=== PATIENT | female | born 1990 | race Caucasian/White ===

== ENCOUNTER 2017-05-25 14:10 | Emergency (ER) | payer SELFPAY ==
[2017-05-25 14:16] VITALS: TEMP 98.6
--- NOTE | 2017-05-25 14:26 | CPEKG ---
Heart Rate: 105 RR Interval: 571 P-R Interval: 128 QRSD Interval: 78 QT Interval: 336 QTC Interval: 445 P [place]: 27 QRS [place]: 105 T Wave [place]: 18 EKG Severity - OTHERWISE NORMAL ECG - EKG Impression: SINUS TACHYCARDIA EKG Impression: BORDERLINE RIGHT AXIS DEVIATION Electronically Signed By: Marcela Aguero 25-May-2017 20:22:00
--- NOTE | 2017-05-25 14:27 | EDPHY ---
H & P Time Seen by Provider: 05/25/17 14:18 HPI/ROS: CHIEF COMPLAINT: Chest pain, shortness of breath HISTORY OF PRESENT ILLNESS: The patient is a healthy 26 y/o female complaining of chest pain and shortness of breath onset 1 hour ago. An hour ago she was sitting down when she began experiencing dizziness, followed by left upper chest pain. Her hands began sweating and she became pale and short of breath prompting her visit. She currently feels shaky with chest pain and shortness of breath. The chest pain is dull, constant, and extends into her back. No change with deep inspiration or exertion. She denies rapid heart rate or other associated symptoms. She denies recent illness, travel, pain, or swelling her legs. She denies drug or alcohol use. REVIEW OF SYSTEMS: Constitutional: No fever, no chills Eyes: No visual changes ENT: No sore throat Respiratory: Shortness of breath, no cough Gastrointestinal: No nausea, no vomiting, no abdominal pain Genitourinary: No hematuria, no dysuria Musculoskeletal: No leg pain or swelling Skin: No rash Neurological: No headache, no weakness Psychiatric: No depression Past Medical/Surgical History: Denies Social History: No alcohol or drug use, non-smoker Smoking Status: Never smoked Physical Exam: General Appearance: Alert, no distress Eyes: Pupils equal and round, no conjunctival pallor or injection ENT, Mouth: Mucous membranes moist Neck: Normal inspection Respiratory: Lungs are clear to auscultation Cardiovascular: Regular rate and rhythm Gastrointestinal: Abdomen is soft and non- tender Neurological: A&O, nonfocal, normal gait Skin: Warm and dry, no rash Extremities: Nontender, no pedal edema Psychiatric: Mood and affect normal Constitutional: Initial Vital Signs Temperature (C) 37 C 05/25/17 14:13 Heart Rate 100 05/25/17 14:13 Respiratory Rate 16 05/25/17 14:13 Blood Pressure 146/99 H 05/25/17 14:13 O2 Sat (%) 96 05/25/17 14:13 O2 Delivery Mode Room Air Allergies/Adverse Reactions: No Known Allergies Allergy (Unverified 05/25/17 14:13) Home Medications: Medication Instructions Recorded NK [No Known Home Meds] 05/25/17 Medical Decision Making - Diagnostics EKG Interpretation: EKG interpreted by me reveals sinus tachycardia, rate 105, no ST or T segment changes. Imaging Results: Imaging Impressions Chest X-Ray 05/25/17 14:26 Impression: Normal. ED Course/Re-evaluation: The patient presents with upper left sided chest pain and shortness of breath sudden onset 1 hour ago. Stat EKG reveals no evidence of ischemia or dysrhythmia. She does have mild sinus tachycardia. Chest X-ray and labs to investigate cardiac or pulmonary causes. Toradol 15 mg IV given for pain. She has no risk factors for pulmonary embolism and is low risk per Wells criteria. A D-dimer was ordered; at this test is negative, I feel that I can safely exclude acute pulmonary embolism as etiology for symptoms. Laboratory analysis reveals hyperkalemia, with potassium was 6.0. She has no underlying renal insufficiency and no history of dehydration. I will repeat a Chem 7, as this may be a lab error secondary to hemolysis. Repeat potassium is normal, consistent with hemolysis. Otherwise, laboratory testing, EKG and chest x-ray were unremarkable. She feels better after IV fluids. She feels that she may have been dehydrated, which may have precipitated this episode. The etiology of this chest pain is likely chest wall pain. There is no evidence of serious cardiopulmonary etiology of pain. She is no longer dizzy after IV fluids and is able to walk with a steady gait. Differential Diagnosis: Differential diagnosis includes though it is not limited to pneumonia, pneumothorax, pulmonary embolism, aortic dissection, pericarditis, acute coronary syndrome. - Data Points Laboratory Results: Laboratory Results 05/25/17 14:57 05/25/17 16:30 05/25/17 05/25/17 05/25/17 16:30 14:57 14:57 WBC RBC Hgb Hct MCV MCH MCHC RDW Plt Count MPV Neut % (Auto) Lymph % (Auto) [place] % (Auto) Eos % (Auto) Baso % (Auto) Nucleat RBC Rel Count Absolute Neuts (auto) Absolute Lymphs (auto) Absolute Monos (auto) Absolute Eos (auto) Absolute Basos (auto) Absolute Nucleated RBC Immature Gran % Immature Gran # D-Dimer < 0.27 ug/mLFEU ug/mLFEU (0.00-0.50) Sodium 143 mEq/L mEq/L 142 mEq/L mEq/L (134-144) (134-144) Potassium 3.9 mEq/L mEq/L 6.0 mEq/L H mEq/L (3.5-5.2) (3.5-5.2) Chloride 109 mEq/L mEq/L 105 mEq/L mEq/L (97-110) (97-110) Carbon Dioxide 22 mEq/l mEq/l 24 mEq/l mEq/l (22-31) (22-31) Anion Gap 12 mEq/L mEq/L 13 mEq/L mEq/L (8-16) (8-16) BUN 11 mg/dL mg/dL 13 mg/dL mg/dL (7-23) (7-23) Creatinine 0.6 mg/dL mg/dL 0.6 mg/dL mg/dL (0.6-1.0) (0.6-1.0) Estimated GFR > 60 > 60 Glucose 90 mg/dL mg/dL 121 mg/dL H mg/dL (70-100) (70-100) Calcium 8.8 mg/dL mg/dL 9.2 mg/dL mg/dL (8.5-10.4) (8.5-10.4) Specimen Hemolysis 190 05/25/17 14:57 WBC 8.40 10^3/uL 10^3/uL (3.80-9.50) RBC 4.48 10^6/uL 10^6/uL (4.18-5.33) Hgb 13.6 g/dL g/dL (12.6-16.3) Hct 38.4 % % (38.0-47.0) MCV 85.7 fL fL (81.5-99.8) MCH 30.4 pg pg (27.9-34.1) MCHC 35.4 g/dL g/dL (32.4-36.7) RDW 12.3 % % (11.5-15.2) Plt Count 349 10^3/uL 10^3/uL (150-400) MPV 9.0 fL fL (8.7-11.7) Neut % (Auto) 49.4 % % (39.3-74.2) Lymph % (Auto) 38.9 % % (15.0-45.0) [place] % (Auto) 6.8 % % (4.5-13.0) Eos % (Auto) 3.8 % % (0.6-7.6) Baso % (Auto) 0.4 % % (0.3-1.7) Nucleat RBC Rel Count 0.0 % % (0.0-0.2) Absolute Neuts (auto) 4.15 10^3/uL 10^3/uL (1.70-6.50) Absolute Lymphs (auto) 3.27 10^3/uL H 10^3/uL (1.00-3.00) Absolute Monos (auto) 0.57 10^3/uL 10^3/uL (0.30-0.80) Absolute Eos (auto) 0.32 10^3/uL 10^3/uL (0.03-0.40) Absolute Basos (auto) 0.03 10^3/uL 10^3/uL (0.02-0.10) Absolute Nucleated RBC 0.00 10^3/uL 10^3/uL (0-0.01) Immature Gran % 0.7 % % (0.0-1.1) Immature Gran # 0.06 10^3/uL 10^3/uL (0.00-0.10) D-Dimer Sodium Potassium Chloride Carbon Dioxide Anion Gap BUN Creatinine Estimated GFR Glucose Calcium Specimen Hemolysis Medications Given: Discontinued Medications Sodium Chloride (Ns) 1,000 mls @ 0 mls/hr IV ONCE ONE; Wide Open PRN Reason: Protocol Stop: 05/25/17 15:29 Last Admin: 05/25/17 15:39 Dose: 1,000 mls Ketorolac Tromethamine (Toradol) 15 mg IVP EDNOW ONE Stop: 05/25/17 15:50 Last Admin: 05/25/17 15:51 Dose: 15 mg Departure - Departure Disposition: Home, Routine, Self-Care Clinical Impression: Dizziness Chest pain Qualifiers: Chest pain type: intercostal pain Qualified Code(s): R07.82 - Intercostal pain Condition: Good Instructions: Lightheadedness (ED), Chest Pain (ED) Additional Instructions: Drink plenty of fluids. Return for recurrent symptoms or any concerns. Ibuprofen 600 mg 3 times daily while the pain persists. Referrals: LUIS A HUTCHINSON [Medical Doctor] - 2-3 days, if not improved Report Scribed for: Marcela Aguero Report Scribed by: Monika Almanzar Date of Report: 05/25/17 Time of Report: 14:22 Physician Review and Approval Statement: 05/25/17 14:22 Portions of this note were transcribed by a medical office manager. I personally performed a history, physical exam, medical decision making, and confirmed accuracy of information the transcribed note.
[2017-05-25 15:07] LABS: % IMMATURE GRANULYOCYTES 0.7 % (0.0-1.1); ABSOLUTE IMMATURE GRANULOCYTES 0.06 10^3/uL (0.00-0.10); ADD DIFF? NO; ADD MORPH? NO; ADD SCAN? NO; ATYPICAL LYMPHOCYTE FLAG 0 (0-99); FRAGMENT RBC FLAG 0 (0-99); HEMATOCRIT 38.4 % (38.0-47.0); HEMOGLOBIN 13.6 g/dL (12.6-16.3); LEFT SHIFT FLG 0 (0-99); LIPEMIA HEMOLYSIS FLAG 90 (0-99); MEAN CELL HEMOGLOBIN 30.4 pg (27.9-34.1); MEAN CELL HEMOGLOBIN CONCENTR. 35.4 g/dL (32.4-36.7); MEAN CELL VOLUME 85.7 fL (81.5-99.8); PLATELET CLUMPS FLAG 0 (0-99); PLATELET COUNT 349 10^3/uL (150-400); RED BLOOD CELL COUNT 4.48 10^6/uL (4.18-5.33); RED CELL DISTRIBUTION WIDTH 12.3 % (11.5-15.2)
[2017-05-25 15:10] VITALS: RESP 19
[2017-05-25 15:21] LABS: ANION GAP 13 mEq/L (8-16); CALCIUM 9.2 mg/dL (8.5-10.4); CARBON DIOXIDE 24 mEq/l (22-31); CHLORIDE 105 mEq/L (97-110); CREATININE 0.6 mg/dL (0.6-1.0); GLOMERULAR FILTRATION RATE > 60; GLUCOSE 121 mg/dL (70-100); SODIUM 142 mEq/L (134-144); SPECIMEN HEMOLYSIS 190
[2017-05-25] MEDS ORDERED: NS 1,000 ML IV ONE (15:28)
[2017-05-25] MEDS ORDERED: KETOROLAC 15 MG/1 ML SDV ONE (15:49)
[2017-05-25] MEDS ORDERED: KETOROLAC 15 MG/1 ML SDV IVP ONE (15:49)
[2017-05-25 17:03] LABS: ANION GAP 12 mEq/L (8-16); CALCIUM 8.8 mg/dL (8.5-10.4); CARBON DIOXIDE 22 mEq/l (22-31); CHLORIDE 109 mEq/L (97-110); CREATININE 0.6 mg/dL (0.6-1.0); GLOMERULAR FILTRATION RATE > 60; GLUCOSE 90 mg/dL (70-100); POTASSIUM 3.9 mEq/L (3.5-5.2); SODIUM 143 mEq/L (134-144)
[2017-05-25 17:21] VITALS: BP 112/73; PULSE 87; O2SAT 99
== END 2017-05-25 17:27 | disposition home or self-care (01) ==
DX: R07.82 Intercostal pain (principal); R42 Dizziness and giddiness; E86.9 Volume depletion, unspecified
CPT/HCPCS: 96374; J1885